=== PATIENT | female | born 1985 | race Caucasian/White ===

== ENCOUNTER 2019-12-15 02:29 | Emergency (ER) | payer SELFPAY ==
--- NOTE | ~2019-12-15 | US_ITS ---
EXAMINATION: US OB <=14 wk fetus w TV DATE: 12/15/2019 03:37 INDICATION: Vaginal bleeding during first trimester TECHNIQUE: Real-time pelvic ultrasound utilizing both a transvaginal and transabdominal probe was pe rformed. The interpreting radiologist was not present for the study. COMPARISON: None. FINDINGS: The uterus measures 8.5 x 4.0 x 5.6 cm. Endometrial complex [id number] mm which is within normal vee its. No intrauterine gestational sac.A 5 mm anechoic nabothian cysts at the cervix.There is an additi onal12 x 7 x 11 mm anechoic cystic structure at the posterior periphery of the cervix with 5 x 3 mm i nternal echogenic focus without vascular flow on color Doppler. No evident yolk sac. The right ovary measures 4.9 x 2.8 x 2.7 cm. And contains a thick-walled 2.0 cm likely corpus luteum cyst. The left ovary measures 2.8 x 1.6 x 1.6 cm. 6 mm anechoic cyst/follicle knee left ovary. Vascul ar flow is identified in both ovaries on color Doppler. There is no free fluid in the pelvis. IMPRESSION: 1. No intrauterine gestational sac. 2. Millimeters complex cystic lesion at the periphery of the cervix with internal nodular echogenic f ocus but without evident vascular flow on color Doppler. This could represent a complex nabothian cys t with internal protein/clot although differential would include ectopic . Correlate with se rial beta-hCG levels and repeat ultrasound as clinically indicated. Reviewed, dictated and finalized at location A. IMPRESSION: 1. No intrauterine gestational sac. 2. Millimeters complex cystic lesion at the periphery of the cervix with pharmacy intern al nodular echogenic focus but without evident vascular flow on color Doppler. This could represent a complex nabothian cyst with internal protein/clot althou gh differential would include ectopic . Correlate with serial beta-hCG levels and repeat ultrasound as clinically indicated.
[2019-12-15 02:35] VITALS: BP 134/96; PULSE 115; RESP 20; TEMP 36.2; O2SAT 99
[2019-12-15 03:09] LABS: Basophils Absolute Auto 0.1 K/mm3 (0.0-0.1); Basophils Percent Auto 0.7 % (0.2-1.2); Eosinophils Absolute Auto 0.3 K/mm3 (0-0.3); Eosinophils Percent Auto 4.1 % (0-4.4); Hematocrit 45.7 % (37.0-47.0); Hemoglobin 15.5 g/dL (12.0-15.0); Immature Granulocyte Absolute 0.03 K/mm3 (0.00-0.031); Immature Granulocyte Percent A 0.4 % (0-0.5); Lymphocytes Absolute Auto 2.62 K/mm3 (0.9-3.2); Lymphocytes Percent Auto 36.9 % (18.3-44.2); Mean Corpuscular HGB Conc 33.9 g/dl (32-36); Mean Corpuscular Volume 97.4 fl (80-100); Mean Platelet Volume 9.1 fl (7.4-10.4); Monocytes Absolute Auto 0.7 K/mm3 (0.1-0.6); Neutrophils Absolute Auto 3.4 K/mm3 (1.3-6.7); Neutrophils Percent Auto 47.9 % (45.5-73.1); Platelet Count Result 316 k/mm3 (150-375); Red Blood Count 4.69 M/mm3 (4.2-5.4); Red Cell Distribution Width 13.7 % (11.5-14.5); White Blood Count 7.1 K/mm3 (4.5-10.0)
[2019-12-15 03:35] LABS: Beta HCG Quantitative < 2.39 mIU/ML
--- NOTE | 2019-12-15 03:59 | ED.GENADULT ---
HPI - General Adult General Chief complaint: Vaginal Bleeding Stated complaint: I think I'm having a miscarriage. Time Seen by Provider: 12/15/19 03:04 Source: patient Mode of arrival: ambulatory Limitations: no limitations History of Present Illness HPI narrative: This patient is a 34 year old female who presents for evaluation of possible miscarriage. PAtient states she had 2 positive test yesterday. This morning she noticed she was having vaginal bleeding. She states her bleeding has worsened but she denies abdominal pain . This would be her 4th . She states her she had a period 2 weeks ago but it was shorter than normal but she had a normal period in October. Related Data Home Medications Medication Instructions Recorded Confirmed amlodipine 12/15/19 aripiprazole mg 12/15/19 buspirone mg 12/15/19 lamotrigine 12/15/19 Allergies Allergy/AdvReac Type Severity Reaction Status Date / Time No Known Allergies Allergy Verified 12/15/19 02:38 Review of Systems Review of Systems: All systems reviewed & are unremarkable except as noted in HPI and below PMFSH Past Medical History Medical History (Updated 12/15/19 @ 05:50 by Elsa Sequeira MD) Anxiety Surgical History Surgical History (Updated 12/15/19 @ 05:50 by Elsa Sequeira MD) History of ankle surgery Social History Social History (Updated 12/15/19 @ 04:02 by Elsa Sequeira MD) Alcohol intake: current Alcohol use details: reports she is an alcoholic Exam Const: General: alert Orientation/consciousness: patient oriented x3 Neck: Neck: normal visual inspection Resp: Effort & Inspection: normal respiratory effort and no retractions Auscultation: clear to auscultation bilaterally Cardio: Rate: regular rate Rhythm: regular rhythm Heart sounds: no murmurs GI: GI Palp: Yes Soft to palpation, No Tenderness to palpation present (GI), No Guarding due to palpation present (GI) and No Rigid due to palpation : Speculum Exam - Vagina: vaginal bleeding (dark blood in vaginal vault , no clots) Speculum Exam - Cervix: normal appearance of the cervix and Cervical os closed Neuro: General: patient oriented x3 and moves all extremities Extrem: General: normal to inspection Course Reevaluation(s) Reevaluation #1: I Discussed with patient that her test is negative. I Discussed ultrasound found to have right ovarian cyst. Date: 12/15/19 Time: 05:47 Vital Signs Vital signs: Vital Signs Temperature 97.2 F L 12/15/19 02:35 Pulse Rate 115 H 12/15/19 02:35 Respiratory Rate 20 12/15/19 02:35 Blood Pressure 134/96 H 12/15/19 02:35 Pulse Oximetry 99 12/15/19 02:35 Temperature 98.4 F 12/15/19 06:02 Pulse Rate 86 12/15/19 06:02 Respiratory Rate 16 12/15/19 06:02 Blood Pressure 114/76 12/15/19 06:02 Pulse Oximetry 98 12/15/19 06:02 Medical Decision Making Vital Signs Vital Signs: Vital Signs Temperature 97.2 F L 12/15/19 02:35 Pulse Rate 115 H 12/15/19 02:35 Respiratory Rate 20 12/15/19 02:35 Blood Pressure 134/96 H 12/15/19 02:35 Pulse Oximetry 99 12/15/19 02:35 Temperature 98.4 F 12/15/19 06:02 Pulse Rate 86 12/15/19 06:02 Respiratory Rate 16 12/15/19 06:02 Blood Pressure 114/76 12/15/19 06:02 Pulse Oximetry 98 12/15/19 06:02 Lab Data Lab results reviewed: Yes I reviewed the patient's lab results. Result diagrams: 12/15/19 03:00 Labs: Lab Results 12/15/19 12/15/19 12/15/19 Range/Units 03:00 03:00 03:00 WBC 7.1 (4.5-10.0) K/mm3 RBC 4.69 (4.2-5.4) M/mm3 Hgb 15.5 H (12.0-15.0) g/dL Hct 45.7 (37.0-47.0) % MCV 97.4 (80-100) fl MCH 33.0 (26-34) pg MCHC 33.9 (32-36) g/dl RDW 13.7 (11.5-14.5) % Plt Count 316 (150-375) k/mm3 MPV 9.1 (7.4-10.4) fl Immature Gran % (Auto) 0.4 (0-0.5) % Neut % (Auto) 47.9 (45.5-73.1) % Lymph % (Aut
[2019-12-15 04:04] VITALS: BP 109/83; BP 126/81; BP 133/97; PULSE 82; PULSE 87; PULSE 95
[2019-12-15 05:10] VITALS: BP 114/79; PULSE 81; RESP 16; O2SAT 99
[2019-12-15 06:02] VITALS: BP 114/76; PULSE 86; RESP 16; TEMP 36.9; O2SAT 98
== END 2019-12-15 06:03 | disposition home or self-care (01) ==
PROVIDERS: Emergency Provider General Practice
DX: N93.9 Abnormal uterine and vaginal bleeding, unspecified (principal); N88.8 Other specified noninflammatory disorders of cervix uteri; F41.9 Anxiety disorder, unspecified
CPT/HCPCS: 36415; 76801; 76817; 84702; 85025; 85461; 99284

== ENCOUNTER 2020-01-31 07:10 | Outpatient (NON) | payer OTHER, SELFPAY ==
[2020-01-31 22:31] LABS: SARS-CoV-2 RNA PCR Negative
== END 2020-01-31 07:11 ==
PROVIDERS: Visit Provider Nurse Practitioner
DX: Z20.828 Contact with and (suspected) exposure to other viral communicable diseases (principal); J02.9 Acute pharyngitis, unspecified
CPT/HCPCS: 87635; C9803; U0003

== ENCOUNTER 2020-12-07 14:37 | Emergency (ER) | payer OTHER, SELFPAY ==
--- NOTE | ~2020-12-07 | XR_ITS ---
EXAMINATION: XR chest 2V DATE: 12/07/2020 16:09 INDICATION: One month of shortness of breath and cough TECHNIQUE: PA and lateral views of the chest were obtained. COMPARISON: None FINDINGS: The lungs are clear with no focal airspace opacities, pulmonary edema, pleural effusion or pneumothor ax. The cardiomediastinal silhouette is normal. Visualized bones and soft tissues are unremarkable. IMPRESSION: 1. No acute cardiopulmonary disease. Reviewed, dictated and finalized at location B.
[2020-12-07 14:50] VITALS: BP 116/82; PULSE 100; RESP 20; TEMP 36.8; O2SAT 100
--- NOTE | 2020-12-07 15:45 | ED.SOB ---
HPI - SOB/Dyspnea General Chief Complaint: Shortness of Breath/Dyspnea Stated Complaint: Chest pain, shortness of breath, coughing, fatigue Time Seen by Provider: 12/07/20 15:46 Source: patient Mode of arrival: ambulatory Limitations: no limitations History of Present Illness HPI Narrative: My Rai is a 35 yo female who is complaining of shortness of breath and dyspnea for the last month. Pain in chest for a month, patient is reportedly very anxious, she has prior medical history of bipolar disorder as well as anxiety told nurse that she is in the middle of a spiritual awakening which is causing her more anxiety. Patient is a smoker Plan is to get a chest x-ray and EKG Related Data Allergies Allergy/AdvReac Type Severity Reaction Status Date / Time No Known Allergies Allergy Verified 12/07/20 16:24 Review of Systems Review of Systems: CONSTITUTIONAL: Denies fever, chills, sweats. EYES: Denies visual changes, redness, discharge. ENT: Denies rhinorrhea, congestion, sore throat, otalgia. CARDIOVASCULAR: Denies chest pain, palpitations, edema. Chest pain or spasm in the left side of chest RESPIRATORY: Complaining of dyspnea, wheezing, cough GASTROINTESTINAL: Denies abdominal pain, nausea, vomiting, diarrhea. GENITOURINARY: Denies dysuria, hematuria, abnormal discharge SKIN: Denies rash or itching. NEUROLOGIC: Denies numbness, or focal weakness. PSYCHIATRIC: Denies anxiety or depression. PMFSH Past Medical History Medical History Anxiety Bipolar disorder Social History Social History (Updated 12/07/20 @ 15:55 by Catherine Garg CNP) Smoking status: Current every day smoker Tobacco type: cigarettes Alcohol intake: current Comments At time of signature, I agree with nursing past medical, surgical, social and family history. There is no relevant family history pertinent to the presenting complaint. Exam Narrative: GENERAL: This is a well-nourished, well-developed patient, in mild distress. Very anxious HEAD: normocephalic, atraumatic. EYES: Sclera clear/white. Vision is grossly intact. EARS: External ears normal, Hearing grossly intact. NOSE: External nose normal without nasal discharge, nares without redness, no rhinorrhea. THROAT: Mucous membranes moist, NECK: Neck supple CARDIOVASCULAR: Regular rate and rhythm without murmurs, gallops, or rubs. Complaining of left-sided chest wall pain RESPIRATORY: Clear to auscultation. Breath sounds equal bilaterally. No wheezes, rales, or rhonchi. GASTROINTESTINAL: Abdomen soft, non-tender, SKIN: warm, intact with no suspicious lesions or rash, good texture and turgor. NEURO: awake, alert, and oriented to person, place and time. There were no obvious focal neurologic abnormalities. Steady gait EXTREMITIES: Normal range of motion. BACK: Nontender without deformity Course Course Emergency Course: Patient comes to [facility] with complaints of left chest pain and anxiety is been going on for a month. She is a smoker. She is currently not medicated for her mental illness chest X-ray-no acute cardiopulmonary disease lungs are clear soft tissue unremarkable EKG-heart rate 96 short [place] interval no axis deviation, appears to be in sinus rhythm, no T wave abnormality COVID UYN-[id number] is on Covid quarantine until results are returned Patient given Ativan 0.5 mg #10 no refills. Appointment to see psychiatrist within the month and referral made for primary care Vital Signs Vital signs: Vital Signs Temperature 98.2 F 12/07/20 14:50 Pulse Rate 100 12/07/20 14:50 Respiratory Rate 20 12/07/20 14:50 Blood Pressure 116/82 12/07/20 14:50 Pulse Oximetry 100 12/07/20 14:50 Temperature 98.2 F 12/07/20 14:50 Pulse Rate 100 12/07/20 14:50 Respiratory Rate 20 12/07/20 14:50 Blood Pressure 116/82 12/07/20 14:50 Pulse Oximetry 100 12/07/20 14:50 MDM - SOB/Dyspnea D
--- NOTE | 2020-12-07 15:51 | ECG_ITS ---
Measurements Intervals [place] Rate: 89 P: 49 NM: 112 QRS: 60 QRSD: 85 T: 70 QT: 367 QTc: 447 Interpretive Statements SINUS RHYTHM WITH SHORT NM INTERVAL BASELINE ARTIFACT- II, III, AVL, AVF, V1-V3 BORDERLINE ECG Electronically Signed On 12-07-2020 19:26:30 CDT by Sandeep Augustine D.O.
[2020-12-08 19:42] LABS: SARS-CoV-2 RNA PCR Negative
== END 2020-12-07 16:50 | disposition home or self-care (01) ==
PROVIDERS: Emergency Provider Nurse Practitioner
DX: R07.89 Other chest pain (principal); F41.9 Anxiety disorder, unspecified; F32.9 Major depressive disorder, single episode, unspecified; F17.210 Nicotine dependence, cigarettes, uncomplicated; Z20.822 Contact with and (suspected) exposure to COVID-19
CPT/HCPCS: 71046; 93005; 99213; C9803; G0463; U0003; U0005

== ENCOUNTER 2021-06-06 23:10 | Emergency (ER) | payer OTHER, SELFPAY ==
--- NOTE | ~2021-06-06 | CT_ITS ---
EXAMINATION: CT brain wo con EXAM DATE: 06/07/2021 00:04 INDICATION: alcohol intoxication, possible head injury . TECHNIQUE: Spiral CT of the head was performed without contrast. Axial, coronal and sagittal images were reviewed. The dose-length product (DLP) for this examination was 605.33 mGy-cm. The exposure w as tailored according to patient size, and iterative reconstruction (ASIR) was used as additional dos e reduction technique. There is no prior study for comparison. FINDINGS: There is no acute intraparenchymal hemorrhage. No evidence of intraparenchymal brain mass lesion. No evidence of acute infarction. There is no mass effect or midline shift. The ventricles are normal in size. There are no extra-axial collections. There are no acute calvarial fractures. T he orbits are unremarkable. Soft tissue is unremarkable. The visualized sinuses and mastoid air lucina ls are well aerated. IMPRESSION: No acute intracranial findings. Reviewed, dictated and finalized at location A. ON FILLING MACHINE OPERATOR
[2021-06-06 23:12] VITALS: BP 117/79; PULSE 83; RESP 99; O2SAT 98
[2021-06-06 23:30] VITALS: RESP 18
[2021-06-06] MEDS: SODIUM CHLORIDE 0.9% IV 1,000 ML 999 ML IV CONT (23:30)
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
--- NOTE | 2021-06-07 01:08 | PC.NURSE ---
Pt threw thermometer on floor, breaking it. ED MD Tran notified, ED VIPIN Stone notified.
[2021-06-07 01:15] VITALS: BP 135/72; PULSE 73; RESP 16; O2SAT 98
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
--- NOTE | 2021-06-07 01:21 | ECG_ITS ---
Measurements Intervals [place] Rate: 84 P: 78 MD: 130 QRS: 65 QRSD: 94 T: 81 QT: 402 QTc: 475 Interpretive Statements SINUS RHYTHM POSSIBLE LEFT ATRIAL ENLARGEMENT BASELINE ARTIFACT- V1 BORDERLINE ECG Electronically Signed On 06-07-2021 7:56:29 PLANT CONTROL OPERATOR by Sandeep Augustine D.O.
--- NOTE | 2021-06-07 07:20 | PC.NURSE ---
Assumed care of pt. at this time. Report from VIPIN Stone
[2021-06-07 07:30] VITALS: BP 136/80; PULSE 77; RESP 14; O2SAT 98
--- NOTE | 2021-06-07 08:26 | PCCCNOTE ---
met with patient bedside, patient is alert and oriented x4, I ADL and lives with sig other, children and her pets. patient is not homicidal nor suicidal at this time. patient feels safe returning home as she feels that is her only choice at this time. CC offered her domestic shelters, however patient declines at this time and would like to return home. CC gave patient a cab voucher to return to [facility]. CC will continue to follow for any needs that may arise.
[2021-06-07 08:30] VITALS: BP 103/71; PULSE 77; RESP 16; O2SAT 96
--- NOTE | 2021-06-07 08:59 | PC.NURSE ---
PER ERP RN ordered pt. a breakfast tray.
[2021-06-07 09:30] VITALS: BP 107/77; PULSE 86; RESP 14; O2SAT 97
== END 2021-06-07 10:00 | disposition home or self-care (01) ==
PROVIDERS: Emergency Provider Emergency Medicine
DX: F10.120 Alcohol abuse with intoxication, uncomplicated (principal); F41.9 Anxiety disorder, unspecified; Y90.9 Presence of alcohol in blood, level not specified; R94.31 Abnormal electrocardiogram [ECG] [EKG]
CPT/HCPCS: 70450; 93005; 96360; 99284; J7030